=== PATIENT | male | born 1975 | race Caucasian/White ===

== ENCOUNTER → 2017-02-14 | Outpatient (CLI) | payer BC ==
[~2017-02-14] MED LIST: ATOR-26 PO; CYAN500T13 PO; ERGO1CAP35 PO; FENO48TA9 PO; GABA-112 PO; HMLI SC; INSDGI SC; LACT12CR18 EXT; LEVO150C2 PO; LOSA50TA6 PO; LOTRIMIN EXT; MELA1TAB3 PO; METF1TAB53 PO; ONDA4TAB46 PO; PANT40TA PO; RANITAB6 PO; SERT50TA PO
[2017-02-14 09:35] LABS: BASO % 0.1 %; BASO ABS # 0.01 K/uL (0-0.2); COMPLETE YES; EOS % 0.7 %; HEMATOCRIT 34.9 % (42-52); IG% 0.3 %; LYMPH % 25.9 %; LYMPH ABS # 1.78 K/uL (1.2-3.4); MEAN CELL VOLUME 85.3 fL (80-100); MEAN CORPUSCULAR HEMOGLOBIN 28.1 pg (25-34); MEAN PLATELET VOLUME 10.7 fL (7.4-10.4); MONO % 10.2 %; NEUT % 62.8 %; PLATELET COUNT 181 K/uL (130-400); RED BLOOD COUNT 4.09 M/uL (4.7-6.1); WHITE BLOOD COUNT 6.87 K/uL (4.8-10.8)
[2017-02-14 09:57] LABS: FERRITIN 141.5 ng/ml (8.0-388.0); THYROID STIMULATING HORMONE 0.026 uIu/ml (0.300-4.500); TOTAL IRON BINDING CAPACITY 286 mcg/dl (250-450)
[2017-02-14 10:07] LABS: ESTIMATED AVERAGE GLUCOSE 171 mg/dl; HA1C FLAG Normal (Normal)
== END | disposition home or self-care (01) ==
LOC: C.LAB1850 07:51
PROVIDERS: ATTEND Family Medicine
DX: I10 Essential (primary) hypertension (principal); E55.9 Vitamin D deficiency, unspecified; K76.0 Fatty (change of) liver, not elsewhere classified; Z86.31 Personal history of diabetic foot ulcer; E66.01 Morbid (severe) obesity due to excess calories; E78.5 Hyperlipidemia, unspecified; R20.0 Anesthesia of skin; C73 Malignant neoplasm of thyroid gland; E89.0 Postprocedural hypothyroidism; R80.9 Proteinuria, unspecified; D64.9 Anemia, unspecified; E10.9 Type 1 diabetes mellitus without complications

== ENCOUNTER → 2017-05-23 | Outpatient (CLI) | payer BC ==
[2017-05-23 09:39] LABS: BASO % 0.1 %; BASO ABS # 0.01 K/uL (0-0.2); COMPLETE YES; EOS % 0.7 %; HEMATOCRIT 35.1 % (42-52); IG% 0.3 %; LYMPH % 25.9 %; LYMPH ABS # 1.88 K/uL (1.2-3.4); MEAN CELL VOLUME 85.6 fL (80-100); MEAN CORPUSCULAR HEMOGLOBIN 27.8 pg (25-34); MEAN CORPUSCULAR HGB CONC 32.5 g/dl (32-36); MEAN PLATELET VOLUME 10.7 fL (7.4-10.4); MONO % 7.7 %; NEUT % 65.3 %; PLATELET COUNT 179 K/uL (130-400); WHITE BLOOD COUNT 7.25 K/uL (4.8-10.8)
[2017-05-23 09:49] LABS: ALKALINE PHOSPHATASE 79 U/L (45-117); ALT/SGPT 38 U/L (12-78); BLOOD UREA NITROGEN 32 mg/dl (7-18); BUN/CREATININE RATIO 19.7 (10-20); CALCIUM 9.3 mg/dl (8.5-10.1); CARBON DIOXIDE 27 mmol/L (21-32); CHLORIDE 104 mmol/L (98-107); CHOLESTEROL 123 mg/dl (0-200); GLUCOSE 162 mg/dl (70-99); POTASSIUM 4.1 mmol/L (3.5-5.1); SODIUM 137 mmol/L (136-145); TRIGLYCERIDES 276 mg/dl (0-150); VERY LOW DENSITY LIPOPROT CALC 55 mg/dl
[2017-05-23 09:58] LABS: ALB/GLOB RATIO 1.2 (0.9-2); AST/SGOT 22 U/L (15-37); FERRITIN 135.7 ng/ml (8.0-388.0); HDL CHOLESTEROL 31 mg/dl; LDL CHOLESTEROL CALCULATED 37 mg/dl; THYROID STIMULATING HORMONE < 0.005 uIu/ml (0.300-4.500); TOTAL IRON BINDING CAPACITY 304 mcg/dl (250-450)
[2017-05-23 10:16] LABS: RATIO 55.3 mcg/mg (0-30.0)
[2017-05-23 12:35] LABS: ESTIMATED AVERAGE GLUCOSE 160 mg/dl; HA1C FLAG Normal (Normal)
[2017-05-24 10:27] LABS: THYROGLOBULIN 3.8 NG/ML (2.8-40.9)
== END | disposition home or self-care (01) ==
LOC: C.LAB1850 07:56
PROVIDERS: ATTEND Internal Medicine Endocrinology, Diabetes & Metabolism
DX: D64.9 Anemia, unspecified (principal); C73 Malignant neoplasm of thyroid gland; E10.9 Type 1 diabetes mellitus without complications; E89.0 Postprocedural hypothyroidism; I10 Essential (primary) hypertension; E55.9 Vitamin D deficiency, unspecified; K76.0 Fatty (change of) liver, not elsewhere classified; Z86.31 Personal history of diabetic foot ulcer; E66.01 Morbid (severe) obesity due to excess calories; E78.5 Hyperlipidemia, unspecified; R20.0 Anesthesia of skin; R80.9 Proteinuria, unspecified

== ENCOUNTER → 2017-06-27 | Outpatient (CLI) | payer BC ==
[2017-06-27 14:49] LABS: URINE APPEARANCE CLEAR (CLEAR); URINE BILIRUBIN NEG (NEG); URINE COLOR YELLOW; URINE NITRITE NEG (NEG); URINE SPECIFIC GRAVITY 1.019 (1.000-1.030); UROBILINOGEN NEG (NEG)
[2017-06-27 14:50] LABS: MANUAL MICROSCOPIC REQUIRED? NO; REVIEW REQ? NO
[2017-06-27 15:03] LABS: BLOOD UREA NITROGEN 25 mg/dl (7-18); BUN/CREATININE RATIO 17.5 (10-20); CALCIUM 9.5 mg/dl (8.5-10.1); CARBON DIOXIDE 26 mmol/L (21-32); CHLORIDE 105 mmol/L (98-107); GLUCOSE 259 mg/dl (70-99); POTASSIUM 4.3 mmol/L (3.5-5.1); SODIUM 139 mmol/L (136-145)
[2017-06-27 15:04] LABS: PHOSPHORUS 4.1 mg/dl (2.5-4.9)
[2017-06-27 15:11] LABS: URINE PROTIEN/CREAT RATIO 0.2 (0-0.2)
== END | disposition home or self-care (01) ==
LOC: C.LAB1850 13:21
PROVIDERS: ATTEND Internal Medicine Nephrology
DX: N17.9 Acute kidney failure, unspecified (principal)

== ENCOUNTER → 2017-12-05 | Outpatient (CLI) | payer BC ==
[2017-12-05 15:49] LABS: BASO % 0.2 %; BASO ABS # 0.01 K/uL (0-0.2); EOS % 0.7 %; EOS ABS # 0.04 K/uL (0-0.5); HEMATOCRIT 37.4 % (42-52); HEMOGLOBIN 12.5 g/dL (14.0-18.0); IG# 0.01 K/uL (0.00-0.02); LYMPH % 24.5 %; LYMPH ABS # 1.39 K/uL (1.2-3.4); MEAN CELL VOLUME 88.6 fL (80-100); MEAN CORPUSCULAR HEMOGLOBIN 29.6 pg (25-34); MEAN CORPUSCULAR HGB CONC 33.4 g/dl (32-36); MEAN PLATELET VOLUME 11.1 fL (7.4-10.4); MONO % 8.1 %; MONO ABS # 0.46 K/uL (0.11-0.59); NEUT % 66.3 %; NEUT ABS # 3.76 K/uL (1.4-6.5); PLATELET COUNT 209 K/uL (130-400); RED CELL DISTRIBUTION WIDTH CV 13.1 % (11.5-14.5); RED CELL DISTRIBUTION WIDTH SD 42.3 fL (36.4-46.3); WHITE BLOOD COUNT 5.67 K/uL (4.8-10.8)
== END | disposition home or self-care (01) ==
LOC: C.LAB1850 14:12
PROVIDERS: ATTEND Internal Medicine Endocrinology, Diabetes & Metabolism
DX: D64.9 Anemia, unspecified (principal); E89.0 Postprocedural hypothyroidism; E10.9 Type 1 diabetes mellitus without complications

== ENCOUNTER → 2018-06-23 | Outpatient (CLI) | payer BC ==
[2018-06-23 10:16] LABS: HEMOGLOBIN A1C 7.8 % (4.5-5.6)
[2018-06-23 10:43] LABS: ALBUMIN 4.1 gm/dl (3.4-5.0); ALKALINE PHOSPHATASE 71 U/L (45-117); ALT/SGPT 42 U/L (12-78); AST/SGOT 38 U/L (15-37); BLOOD UREA NITROGEN 19 mg/dl (7-18); CALCIUM 8.6 mg/dl (8.5-10.1); CARBON DIOXIDE 26 mmol/L (21-32); CHOLESTEROL 103 mg/dl (0-200); CREATININE 1.71 mg/dl (0.60-1.40); GLUCOSE 169 mg/dl (70-99); LDL CHOLESTEROL CALCULATED 31 mg/dl; POTASSIUM 3.8 mmol/L (3.5-5.1); SODIUM 137 mmol/L (136-145); TOTAL PROTEIN 7.3 gm/dl (6.4-8.2)
== END | disposition home or self-care (01) ==
LOC: C.LAB1850 08:34
PROVIDERS: ATTEND Internal Medicine Endocrinology, Diabetes & Metabolism
DX: E55.9 Vitamin D deficiency, unspecified (principal); C73 Malignant neoplasm of thyroid gland; E10.65 Type 1 diabetes mellitus with hyperglycemia

== ENCOUNTER → 2018-06-26 | Outpatient (CLI) | payer BC ==
--- NOTE | 2018-06-26 07:30 | DIAGNOSTIC IMAGING REPORT ---
SOFT TISS HEAD/NECK-THYROID CLINICAL HISTORY: 42 years-old Male presenting with S/P THYROIDECTOMY. TECHNIQUE: Real-time grayscale and color Doppler ultrasound imaging of the thyroid and base of the neck was performed. COMPARISON: 05/03/2016. FINDINGS: Heterogeneously hyperechoic 1.5 x 0.7 x 1.7 cm nodule evident in the right thyroidectomy bed, which is new from prior. Less well-defined though somewhat similar-appearing nodularity suggested in the left thyroidectomy bed. IMPRESSION: Nodularity in the thyroidectomy bed, right greater than left. This raises concern for recurrent disease. The report will be called/faxed according to standard departmental protocol. Electronically signed by: Reymundo Marie M.D. 06/26/2018 7:29 AM Dictated Date/Time: 06/26/2018 7:26 AM
== END | disposition home or self-care (01) ==
LOC: C.ULTR 06:52
PROVIDERS: ATTEND Internal Medicine Endocrinology, Diabetes & Metabolism
DX: C73 Malignant neoplasm of thyroid gland (principal); E89.0 Postprocedural hypothyroidism

== ENCOUNTER → 2018-07-10 | Outpatient (CLI) | payer BC ==
[~2018-07-10] MED LIST changes: +ASPI81TA28 PO; +ERGO500011 PO; +INSDGIPEN SC; +INSU100I2 SC; +LEVO100C2 PO; +LEVO50CA2 PO; +LOSA100T65 PO; +METF-384 PO; +PANT40TA2 PO; +TRC48 PO; +ZLF/50 PO
[2018-07-10 17:55] LABS: BLOOD UREA NITROGEN 26 mg/dl (7-18); CREATININE 1.55 mg/dl (0.60-1.40); GLUCOSE 212 mg/dl (70-99)
[2018-07-10 17:56] LABS: CALCIUM 8.8 mg/dl (8.5-10.1); CARBON DIOXIDE 25 mmol/L (21-32); PHOSPHORUS 3.6 mg/dl (2.5-4.9); POTASSIUM 4.3 mmol/L (3.5-5.1); SODIUM 137 mmol/L (136-145)
== END | disposition home or self-care (01) ==
LOC: C.LAB1850 15:07
PROVIDERS: ATTEND Internal Medicine Nephrology
DX: N17.9 Acute kidney failure, unspecified (principal)

== ENCOUNTER → 2018-07-10 | Outpatient (CLI) | payer BC ==
--- NOTE | 2018-07-10 11:53 | Discharge Instructions ---
Discharge Instructions Procedure Procedure Date: Jul 10, 2018. Reason for visit: Hx Papillary Carcinoma Of Thyroid. Discharge Discharge Date: Jul 10, 2018. 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 * Resume regular activity in one day. MEDICATIONS: * May take Tylenol or Ibuprofen as needed for pain. DIET: * Resume previous diet. SPECIAL CARE INSTRUCTIONS: Call your doctor if: * Temperature above 101 degrees F. * Pain not relieved by pain medicine ordered. * Increased drainage or redness from incision. * Notify your doctor with any questions or concerns. Call your doctor or go to the nearest Emergency Department if you experience: * Increased chest pain or shortness of breath. FOLLOW UP VISIT: Follow-up with Referring Physician as scheduled. Allergies Coded Allergies: Erythromycin (Verified Allergy, Unknown, HIVES, 07/04/16) Penicillins (Verified Allergy, Unknown, HIVES; TOLERATED AMOXICILLIN, 07/04) Vancomycin (Verified Allergy, Unknown, GI SYMPTOMS, 07/04/16) red man syndrome Adhesives (Verified Adverse Reaction, Intermediate, TAPE-MARTIN SKIN, ) [place] Recommendations: Call your doctor if: * Temperature above 101 degrees * Pain not relieved by pain medicine ordered * There is increased drainage or redness from any incision * You have any unanswered questions or concerns. Your Doctors Instructions noted above were prepared by provider Daniele Finch. Patient Signature Section: Patient Instructions Signature Page Pilo Espinoza Patient (or Guardian) Signature/Date: I have read and understand the instructions given to me by my caregivers. Caregiver/RN/Doctor Signature/Date: The above-named patient and/or guardian has received patient instructions on this date. + Original Patient Signature Page (only) stays with chart. Please make copy for patient.
--- NOTE | 2018-07-10 12:11 | DIAGNOSTIC IMAGING REPORT ---
ULTRASOUND-GUIDED FINE-NEEDLE ASPIRATION RIGHT CERVICAL LYMPH NODE CLINICAL HISTORY: Right cervical lymph node. History of papillary carcinoma of the thyroid gland. COMPARISON STUDY: Ultrasound of the neck dated 06/26/2018. PROCEDURE: The risks, benefits, and alternatives to the procedure were discussed with the patient. Written informed consent was obtained. The patient was placed supine in ultrasound, and the 1.7 cm lymph node lateral to the right thyroidectomy bed questioned on 06/26/2018 ultrasound was localized by ultrasound and selected for fine needle aspiration. The right neck was prepped and draped in the usual sterile fashion. The node was aspirated under ultrasound guidance with 3 passes utilizing 25-gauge needles. Specimens were reviewed by the pathologist in real-time and confirmed the presence of lymphocytes. The patient tolerated the procedure well and left the department in satisfactory condition. IMPRESSION: Completed fine-needle aspiration of the lymph node lateral to the right thyroidectomy bed questioned on the 06/26/2018 ultrasound. Electronically signed by: Daniele Finch M.D. 07/10/2018 12:10 PM Dictated Date/Time: 07/10/2018 12:08 PM
== END | disposition home or self-care (01) ==
LOC: C.ULTR 10:15
PROVIDERS: ATTEND Internal Medicine Endocrinology, Diabetes & Metabolism
DX: C73 Malignant neoplasm of thyroid gland (principal)

== ENCOUNTER 2018-07-12 21:16 | Emergency (ER) | payer BC ==
[~2018-07-12] VITALS: Ht 182.9 cm; Wt 143.7 kg
[~2018-07-12 21:16] MED LIST changes: -ASPI81TA28 PO; -ERGO500011 PO; -INSDGIPEN SC; -INSU100I2 SC; -LEVO100C2 PO; -LEVO50CA2 PO; -LOSA100T65 PO; -METF-384 PO; -PANT40TA2 PO; -TRC48 PO; -ZLF/50 PO
[2018-07-12 21:20] VITALS: Ht 182.9 cm; Wt 143.7 kg
[2018-07-12] MEDS ORDERED: ALBUT/IPRATROP 3MG/0.5MG NEB 3 ML VIAL INH STA (21:46)
[2018-07-12 22:07] LABS: BASO % 0.3 %; BASO ABS # 0.02 K/uL (0-0.2); EOS % 0.8 %; EOS ABS # 0.05 K/uL (0-0.5); HEMATOCRIT 37.1 % (42-52); HEMOGLOBIN 12.3 g/dL (14.0-18.0); IG# 0.03 K/uL (0.00-0.02); LYMPH % 22.9 %; LYMPH ABS # 1.51 K/uL (1.2-3.4); MEAN CELL VOLUME 87.9 fL (80-100); MEAN CORPUSCULAR HEMOGLOBIN 29.1 pg (25-34); MEAN CORPUSCULAR HGB CONC 33.2 g/dl (32-36); MEAN PLATELET VOLUME 10.6 fL (7.4-10.4); MONO % 8.3 %; MONO ABS # 0.55 K/uL (0.11-0.59); NEUT % 67.2 %; NEUT ABS # 4.43 K/uL (1.4-6.5); PLATELET COUNT 187 K/uL (130-400); RED CELL DISTRIBUTION WIDTH CV 12.8 % (11.5-14.5); RED CELL DISTRIBUTION WIDTH SD 41.1 fL (36.4-46.3); WHITE BLOOD COUNT 6.59 K/uL (4.8-10.8)
[2018-07-12] MEDS ORDERED: METF-384 PO (22:10)
[2018-07-12] MEDS ORDERED: INSU100I2 SC (22:10)
[2018-07-12] MEDS ORDERED: INSDGIPEN SC ×2 (22:10)
[2018-07-12] MEDS ORDERED: ASPI81TA28 PO (22:10)
[2018-07-12] MEDS ORDERED: LOSA100T65 PO (22:10)
[2018-07-12] MEDS ORDERED: ZLF/50 PO (22:10)
[2018-07-12] MEDS ORDERED: LEVO100C2 PO (22:10)
[2018-07-12] MEDS ORDERED: TRC48 PO (22:10)
[2018-07-12] MEDS ORDERED: LEVO50CA2 PO (22:10)
[2018-07-12] MEDS ORDERED: ERGO500011 PO (22:10)
[2018-07-12] MEDS ORDERED: PANT40TA2 PO (22:10)
[2018-07-12 22:11] VITALS: O2SAT 93
[2018-07-12 22:32] LABS: ALBUMIN 3.7 gm/dl (3.4-5.0); ALKALINE PHOSPHATASE 82 U/L (45-117); ALT/SGPT 29 U/L (12-78); AST/SGOT 19 U/L (15-37); BLOOD UREA NITROGEN 18 mg/dl (7-18); CALCIUM 9.1 mg/dl (8.5-10.1); CARBON DIOXIDE 25 mmol/L (21-32); CREATININE 1.44 mg/dl (0.60-1.40); GLUCOSE 157 mg/dl (70-99); SODIUM 140 mmol/L (136-145); TOTAL PROTEIN 7.1 gm/dl (6.4-8.2)
[2018-07-13] MEDS ORDERED: ALBUTEROL HFA 8 GM INHALER INH ONE
--- NOTE | 2018-07-13 00:05 | EMERGENCY ROOM VISIT NOTE ---
History First contact with patient: 21:30 Chief Complaint: RESPIRATORY PROBLEMS Stated Complaint: INCREASED PULSE AND BREATHING DIFFICULTY Nursing Triage Summary: Pt states he woke up this evening around 1900 (works 3rd shift and slept during the day) feeling like he was breathing through smoke. no history of asthma or heart problems, has not had this feeling previously. Small amount of cough, not bringing up any sputum. Denies trauma. No recent medication changes. History of Present Illness The patient is a 43 year old male who presents to the Emergency Room with complaints of shortness of breath. The patient states that he laid down after dinner and woke up with his heart racing. He states that his chest now feels heavy and he feels like he is "breathing through smoke." His symptoms started about 2.5 hours ago. He initially thought his symptoms may be due to anxiety, as he had a biopsy of his neck recently. He states this was a fine-needle aspiration biopsy of a mass in his right anterior neck. He has a history of thyroid cancer and had a thyroidectomy in the past. He does state he has had some pain and soreness in the area of the biopsy. He denies any history of breathing issues. He does feel he has been coughing more recently and has had issues with his allergies. He denies any cardiac history or significant family history of cardiac disease. He is not a smoker and denies recent travel. He denies any chest pain. Review of Systems A complete 10 point review of systems was reviewed with the patient with pertinent positives and negatives as per history of present illness. All else were negative. Past Medical/Surgical History Medical Problems: (1) Diabetes (2) Hyperglycemia (3) Hyperlipidemia (4) Hypertension (5) Thyroid cancer (6) Tibial plateau fracture Family History Cancer Diabetes mellitus Gallbladder disease Heart disease Hypertension Social History Smoking Status: Never Smoker Alcohol Use: none Drug Use: none Marital Status: Housing Status: lives with significant other Occupation Status: employed Current/Historical Medications Scheduled Aspirin (Aspirin Ec), 81 MG PO DAILY Atorvastatin (Lipitor), 80 MG PO HS Cyanocobalamin (Vitamin B12 500MCG), 500 MCG PO QAM Ergocalciferol (Vitamin D 81327 Unit), 50,000 INTER.UNIT PO WK Fenofibrate (Fenofibrate), 48 MG PO DAILY Insulin Glargine (Lantus Solostar), 35 UNITS SC QAM Insulin Glargine (Lantus Solostar), 30 UNITS SC QPM Insulin Lispro (Human) (Humalog Kwikpen), 1 DOSE SC AC Levothyroxine Sodium (Tirosint), 200 MCG PO QAM Levothyroxine Sodium (Tirosint), 50 MCG PO QAM Losartan Potassium (Cozaar), 100 MG PO DAILY Metformin Hcl (Glucophage), 1,000 MG PO BIDM Pantoprazole (Pantoprazole Sodium), 40 MG PO BID Sertraline HCl (Sertraline HCl), 75 MG PO DAILY Physical Exam Vital Signs Date Time Temp Pulse Resp B/P (MAP) Pulse Ox O2 Delivery O2 Flow Rate FiO2 07/13/18 00:11 36.9 77 18 148/81 95 07/12/18 22:30 81 144/66 93 07/12/18 22:14 78 18 130/72 93 Room Air 07/12/18 22:11 93 Room Air 07/12/18 22:07 93 Room Air 07/12/18 21:20 36.9 83 20 144/80 97 Room Air Physical Exam VITALS: Vitals are noted on the nurse's note and reviewed by myself. Vital signs stable. GENERAL: This is a 43-year-old male, in no acute distress, nondiaphoretic, well- developed well-nourished. SKIN: The skin was without rashes. EARS: External auditory canals clear, tympanic membranes pearly quiles without erythema or effusion bilaterally. EYES: Pupils equal round and reactive to light and accommodation. MOUTH: Mucous membranes moist. Tonsils are not enlarged. Pharynx without erythema or exudate. NECK: Supple without nuchal rigidity. No lymphadenopathy. There is a tiny puncture to the right anterior neck at the site of the biopsy. No erythema or induration to suggest surrounding cellulitis. HEART: Regular rate and rhythm without murmurs gallops or rubs. LUNGS: Clear to auscultation bilaterally without wheezes, rales or rhonchi. No retractions or accessory muscle use. NEURO: Patient was alert and oriented to person place and time. Medical Decision & Procedures ER Provider Diagnostic Interpretation: CHEST XRAY: No cardiomegaly. No infiltrates. No pleural effusion or pneumothorax. Laboratory Results 07/12/18 21:57 Red Blood Count 4.22, Mean Corpuscular Volume 87.9, Mean Corpuscular Hemoglobin 29.1, Mean Corpuscular Hemoglobin Concent 33.2, Mean Platelet Volume 10.6, Neutrophils (%) (Auto) 67.2, Lymphocytes (%) (Auto) 22.9, Monocytes (%) (Auto) 8.3, Eosinophils (%) (Auto) 0.8, Basophils (%) (Auto) 0.3, Neutrophils # (Auto) 4.43, Lymphocytes # (Auto) 1.51, Monocytes # (Auto) 0.55, Eosinophils # (Auto) 0.05, Basophils # (Auto) 0.02 07/12/18 21:57 Test 07/12/18 21:57 White Blood Count 6.59 K/uL (4.8-10.8) Red Blood Count 4.22 M/uL (4.7-6.1) Hemoglobin 12.3 g/dL (14.0-18.0) Hematocrit 37.1 % (42-52) Mean Corpuscular Volume 87.9 fL (80-100) Mean Corpuscular Hemoglobin 29.1 pg (25-34) Mean Corpuscular Hemoglobin Concent 33.2 g/dl (32-36) Platelet Count 187 K/uL (130-400) Mean Platelet Volume 10.6 fL (7.4-10.4) Neutrophils (%) (Auto) 67.2 % Lymphocytes (%) (Auto) 22.9 % Monocytes (%) (Auto) 8.3 % Eosinophils (%) (Auto) 0.8 % Basophils (%) (Auto) 0.3 % Neutrophils # (Auto) 4.43 K/uL (1.4-6.5) Lymphocytes # (Auto) 1.51 K/uL (1.2-3.4) Monocytes # (Auto) 0.55 K/uL (0.11-0.59) Eosinophils # (Auto) 0.05 K/uL (0-0.5) Basophils # (Auto) 0.02 K/uL (0-0.2) RDW Standard Deviation 41.1 fL (36.4-46.3) RDW Coefficient of Variation 12.8 % (11.5-14.5) Immature Granulocyte % (Auto) 0.5 % Immature Granulocyte # (Auto) 0.03 K/uL (0.00-0.02) Anion Gap 11.0 mmol/L (3-11) Est Creatinine Clear Calc Drug Dose 100.4 ml/min Estimated GFR () 69.9 Estimated GFR (Non- 60.3 BUN/Creatinine Ratio 12.5 (10-20) Calcium Level 9.1 mg/dl (8.5-10.1) Total Bilirubin 0.3 mg/dl (0.2-1) Aspartate Amino Transf (AST/SGOT) 19 U/L (15-37) Alanine Aminotransferase (ALT/SGPT) 29 U/L (12-78) Alkaline Phosphatase 82 U/L (45-117) Troponin I < 0.015 ng/ml (0-0.045) Total Protein 7.1 gm/dl (6.4-8.2) Albumin 3.7 gm/dl (3.4-5.0) Globulin 3.4 gm/dl (2.5-4.0) Albumin/Globulin Ratio 1.1 (0.9-2) Medications Administered Medications (Trade) Dose Ordered Sig/Peter Route Start Time Stop Time Status Last Admin Dose Admin Albuterol/ Ipratropium (Duoneb) 3 ml NOW STAT INH 07/12/18 21:46 07/12/18 21:48 DC 07/12/18 22:12 3 ML Albuterol (Ventolin Hfa Inhaler) 2 puffs NOW ONCE INH 07/13/18 00:00 07/13/18 00:03 DC 07/13/18 00:00 2 PUFFS Medical Decision Differential diagnosis includes pneumonia, bronchitis, anxiety, ACS, among others. The patient is a 43-year-old male who presents today complaining of shortness of breath. Labs revealed mild anemia with hemoglobin of 12.3, which appears to be baseline for the patient. Creatinine is slightly elevated which does appear to be the patient's baseline. Chest x-ray is unremarkable. Troponin negative and EKG unremarkable. Patient is PERC negative. Patient was treated with a DuoNeb and did have significant improvement of symptoms with this. He may have a viral bronchitis, as he does state that his allergies have been acting up recently. I also suspect there is a component of anxiety to the patient's symptoms. He was given a Ventolin inhaler. He was advised to follow-up with his PCP this week. The patient's case was reviewed with Dr. Bethea, ED attending physician, who agreed with my assessment and treatment plan. Based on the patient's presentation and work up, I feel the patient is stable for outpatient treatment. The patient was educated to return to the emergency department for any worsening of their current condition or new/concerning symptoms. He will follow up with his PCP. Medication Reconcilliation Current Medication List: was personally reviewed by me Blood Pressure Screening Patient's blood pressure: Elevated blood pressure Blood pressure disposition: Elevated BP felt to be situational Impression Primary Impression: Shortness of breath Departure Information Dispostion Home / Self-Care Condition GOOD Referrals Rabia Bassett,P.A. (PCP) Patient Instructions My [facility] [employer] Additional Instructions Use the Ventolin inhaler every 4-6 hours as needed for shortness of breath. As discussed, follow-up with your primary care provider this week for a recheck. Return to the emergency department with worsening shortness of breath, chest pains, or any other new/concerning symptoms.
[2018-07-13 00:11] VITALS: BP 148/81; PULSE 77; TEMP 36.9; O2SAT 95
--- NOTE | 2018-07-13 06:53 | DIAGNOSTIC IMAGING REPORT ---
CHEST 2 VIEWS ROUTINE CLINICAL HISTORY: cough, shortness of breath COMPARISON STUDY: June 21, 2016 FINDINGS: The cardiac and mediastinal contours are normal. There is no evidence of focal pulmonary consolidation. There is no evidence of failure. No pleural effusions are visualized.[ IMPRESSION: No active disease in the chest. Electronically signed by: Sukhi Franco M.D. 07/13/2018 6:51 AM Dictated Date/Time: 07/13/2018 6:51 AM
== END 2018-07-13 00:12 | disposition still patient (30) ==
LOC: C.EDB 21:18
DX: R06.02 Shortness of breath (principal); Z98.890 Other specified postprocedural states; E78.5 Hyperlipidemia, unspecified; E11.65 Type 2 diabetes mellitus with hyperglycemia; Z79.4 Long term (current) use of insulin; Z79.82 Long term (current) use of aspirin; I10 Essential (primary) hypertension; Z85.850 Personal history of malignant neoplasm of thyroid